=== PATIENT | male | born 1995 | race Caucasian/White ===

== ENCOUNTER 2025-01-03 06:17 | Day surgery (SDC) | payer OTHER, SELFPAY ==
[2025-01-03 08:25] VITALS: BP 116/81
[2025-01-03 08:28] VITALS: BMI 27.9
[2025-01-03 09:27] VITALS: BP 106/67
[2025-01-03 09:30] VITALS: BP 110/66
[2025-01-03 09:45] VITALS: BP 115/78
== END 2025-01-03 10:05 | disposition home or self-care (01) ==
LOC: SDS 06:17
PROVIDERS: ATTENDING PHYSICIAN Internal Medicine Gastroenterology
DX: K64.9 Unspecified hemorrhoids (principal)
CPT/HCPCS: 45378